=== PATIENT | female | born 1995 | race Caucasian/White ===

== ENCOUNTER 2018-08-09 05:07 | Emergency (ER) | payer SELFPAY ==
[2018-08-09 05:12] VITALS: BP 122/49
--- NOTE | 2018-08-09 05:39 | ER Document Report ---
ED Medical Screen (RME) - General Chief Complaint: Flank Pain Stated Complaint: RIGHT BACK PAIN Time Seen by Provider: 08/09/18 05:31 Mode of Arrival: Ambulatory Information source: Patient Notes: 23-year-old female with no reported past medical history presents with complaint of right-sided low back pain that started 2 hours prior to arrival. Patient states that she had pyelonephritis approximately 7 months ago and this feels similar. She denies fever, chills, nausea, vomiting, dysuria, hematuria. Last menstrual period was 07/23/2018. I have greeted and performed a rapid initial assessment of this patient. A comprehensive ED assessment and evaluation of the patient, analysis of test results and completion of medical decision making process we will be contacted by additional ED providers. PHYSICAL EXAMINATION: GENERAL: Well-appearing, well-nourished and in no acute distress. Abdomen: Nontender, right CVA tenderness LUNGS: No respiratory distress Musculoskeletal: Normal range of motion NEUROLOGICAL: Normal speech, normal gait. PSYCH: Normal mood, normal affect. SKIN: Warm, Dry, normal turgor, no rashes or lesions noted. TRAVEL OUTSIDE OF THE [place] IN LAST 30 DAYS: No - HPI Onset: Just prior to arrival Onset/Duration: Sudden Quality of pain: Achy Severity: Mild Associated Symptoms: denies: Chills, Fever, Nausea, Vomiting Exacerbated by: Denies Relieved by: Denies Similar symptoms previously: Yes Recently seen / treated by doctor: No - Related Data Smoking: Non-smoker Frequency of alcohol use: None Drug Abuse: None Physical Exam - Vital signs Vitals: Temp Pulse Resp BP Pulse Ox 99.1 F 93 16 122/49 L 100 08/09/18 05:07 08/09/18 05:07 08/09/18 05:07 08/09/18 05:07 08/09/18 05:07 Course - Vital Signs Vital signs: Temp Pulse Resp BP Pulse Ox 99.1 F 93 16 122/49 L 100 08/09/18 05:07 08/09/18 05:07 08/09/18 05:07 08/09/18 05:07 08/09/18 05:07
[2018-08-09 06:43] LABS: APPEARANCE,URINE SLIGHTLY-CLOUDY; BILIRUBIN,URINE NEGATIVE (NEGATIVE); COLOR,URINE YELLOW; GLUCOSE, URINE NEGATIVE (NEGATIVE); KETONES,URINE NEGATIVE (NEGATIVE); LEUKOCYTE ESTERASE,URINE SMALL (NEGATIVE); NITRITE,URINE NEGATIVE (NEGATIVE); PROTEIN,URINE NEGATIVE (NEGATIVE); URINE SPECIFIC GRAVITY 1.011; UROBILINOGEN,URINE NEGATIVE mg/dL (<2.0)
--- NOTE | 2018-08-09 06:56 | ER Document Report ---
ED General - General Chief Complaint: Flank Pain Stated Complaint: RIGHT BACK PAIN Time Seen by Provider: 08/09/18 05:31 Mode of Arrival: Ambulatory Information source: Patient TRAVEL OUTSIDE OF THE [place] IN LAST 30 DAYS: No - HPI Patient complains to provider of: Right kidney Onset: Other - 23-year-old otherwise healthy female presents for evaluation of pain in her right flank. She notes that in the past she had had an episode of a kidney infection and this feels very similar to her previous kidney infection. She states that she is regularly having normal menses at this time is does not believe that she could be , she denies any fevers or chills , nausea, diarrhea constipation or dysuria. She is got pain along the right flank which feels like her previous kidney infection. - Related Data Allergies/Adverse Reactions: Penicillins Allergy (Verified 08/09/18 05:42) Past Medical History - General Information source: Patient - Social History Smoking Status: Never Smoker Frequency of alcohol use: None Drug Abuse: None Family History: None Patient has suicidal ideation: No Patient has homicidal ideation: No Renal/ Medical History: Denies: Hx Peritoneal Dialysis Review of Systems - Review of Systems -: Yes All other systems reviewed and negative Physical Exam - Vital signs Vitals: Temp Pulse Resp BP Pulse Ox 99.1 F 93 16 122/49 L 100 08/09/18 05:07 08/09/18 05:07 08/09/18 05:07 08/09/18 05:07 08/09/18 05:07 Interpretation: Normal - General General appearance: Appears well In distress: None - HEENT Head: Normocephalic, Atraumatic Eyes: Normal Pupils: PERRL - Respiratory Respiratory status: No respiratory distress Chest status: Nontender Breath sounds: Normal Chest palpation: Normal - Cardiovascular Rhythm: Regular Heart sounds: Normal auscultation Murmur: No - Abdominal Inspection: Normal Distension: No distension Bowel sounds: Normal Tenderness: Nontender Organomegaly: No organomegaly - Back Back: CVA tenderness - Tenderness along the right CVA - Extremities General upper extremity: Normal inspection, Nontender, Normal color, Normal ROM , Normal temperature General lower extremity: Normal inspection, Nontender, Normal color, Normal ROM , Normal temperature, Normal weight bearing. No: Terri's sign - Neurological Neuro grossly intact: Yes Cognition: Normal Orientation: AAOx4 Tony Coma Scale Eye Opening: Spontaneous Tony Coma Scale Verbal: Oriented Tony Coma Scale Motor: Obeys Commands Tony Coma Scale Total: 15 Speech: Normal Motor strength normal: LUE, RUE, LLE, RLE Sensory: Normal - Psychological Associated symptoms: Normal affect, Normal mood - Skin Skin Temperature: Warm Skin Moisture: Dry Skin Color: Normal Course - Re-evaluation Re-evalutation: 08/09/18 08:19 23-year-old female who presents for right-sided flank pain. She has a previous history of a single episode of pyelonephritis in the past, states this feels very much like that, was feeling a little bit unwell yesterday and then had worsening this morning. Examination she does have tenderness in the right flank. Her urinalysis does demonstrate pyuria evidence of infection. We will plan for presumptive coverage, per infectious disease recommendation nationally for line agent would be Keflex and a 23 otherwise [id number] female. We will plan for discharge with return precautions and expectant management. At the time of discharge she was well-appearing, she was given instructions for how to use antipyretics as well. - Vital Signs Vital signs: Temp Pulse Resp BP Pulse Ox 99.1 F 93 16 122/49 L 100 08/09/18 05:07 08/09/18 05:07 08/09/18 05:07 08/09/18 05:07 08/09/18 05:07 - Laboratory Laboratory results interpreted by me: 08/09/18 06:15 Urine Blood MODERATE H Ur Leukocyte Esterase SMALL H Discharge - Discharge Clinical Impression: Pyelonephritis Condition: Good Disposition: HOME, SELF-CARE Instructions: Acetaminophen, Cephalexin ([facility]), Pyelonephritis ([facility]) Additional Instructions: You were seen today in the emergency department for your kidney pain. He had evaluation including a physical exam as well as a urine test. Your urine test demonstrates that you do have an infection in your kidney. Use Tylenol and Motrin for your infection. Use the antibiotic prescribed you for the next 10 days. Return for worsening fevers or chills, if you begin to have nausea or unable to eat or drink. Prescriptions: Cephalexin Monohydrate [Keflex 500 mg Capsule] 500 mg PO Q6H 10 Days #40 capsule
== END 2018-08-09 07:10 | disposition home or self-care (01) ==
LOC: ER 05:07
DX: N12 Tubulo-interstitial nephritis, not specified as acute or chronic (principal); R10.9 Unspecified abdominal pain; M54.9 Dorsalgia, unspecified
CPT/HCPCS: 81001; 81025; 99284